=== PATIENT | female | born 1985 | race Caucasian/White ===

== ENCOUNTER 2017-01-29 18:33 | Inpatient (IN) | payer OTHER ==
--- NOTE | ~2017-01-29 | PN ---
Unit #: [id number] #: [id number] Patient: SARAH LEACH [id number] [facility] [address] [place] [address] [id number] MR#: [id number] NAME: SARAH LEACH. ROOM: P106 Age: 31 Sex: F Admission Date: 01/29/2017 : 1985 Attending Physician: Chico Lu M.D. Admitting Physician: Chioc Lu M.D. Primary Care Physician: Primary Care Physician Alisa BRAR PROGRESS NOTES DATE 02/01/2017 DISCUSSION Sarah is showing improvement today with less internal preoccupation, improved psychosis and compliance with medication. She is alert and fully oriented. Her memory and concentration are fair and her thought processes are nonpsychotic today. ASSESSMENT Substance induced psychotic disorder, post-traumatic stress disorder. PLAN Continue current treatment plan anticipating discharge later this week. Dictated by... Chico Lu M.D. [facility]/daya TD: 02/07/2017 10:29 JOB #: [id number] MAYKEL PROGRESS NOTES Page 1 of 1 X Chico Lu MD X PROGRESS NOTE
--- NOTE | ~2017-01-29 | DS ---
Unit #: [id number] #: [id number] Patient: REBEL LEACH [id number] [facility] [address] [place] [address] [id number] MR#: [id number] NAME: REBEL LEACH. ROOM: [facility] Age: 31 Sex: F Admission Date: 01/29/2017 : 1985 Discharge Date: 02/02/2017 Attending Physician: Chico Lu M.D. Primary Care Physician: Primary Care Physician No DISCHARGE SUMMARY REASON FOR ADMISSION Elia is a 31-year-old woman with a long history of polysubstance dependence and mood disorder. She was admitted when she was unable to contract for safety and had presented to [facility] in restraints due to agitation and disorientation following methamphetamine abuse. She was transferred to [facility]. HOSPITAL COURSE The patient was admitted and placed on suicide and psychosis precautions. Zyprexa was added for antipsychotic effects and her previous psych medications were restarted. The patient's drug-induced psychosis rapidly resolved with less internal preoccupation. No disorganization and no further suicidal ideation or agitation. On the date of discharge, she was once again able to contract for safety in the outpatient setting. DISCHARGE DIAGNOSES AXIS I: Amphetamine-induced psychotic disorder; posttraumatic stress disorder by history. AXIS II: Borderline personality traits. AXIS III: Amphetamine intoxication, resolved. AXIS IV: AXIS V: DISCHARGE INSTRUCTIONS Follow up with community mental health and CD-IOP at this facility. DISCHARGE MEDICATIONS Buspirone 15 mg q.i.d. for anxiety, Minipress 2 mg at bedtime for nightmares, Zoloft 100 mg daily for depression, albuterol 2 puffs every 4 hours as needed for shortness of air, Zyprexa was not continued after discharge. CONDITION AT DISCHARGE Fair. PROGNOSIS Fair. DIET AND ACTIVITY Ad mihaela. Unit #: [id number] #: [id number] Patient: REBEL LEACH Dictated by... Chico Lu M.D. MR/modl TD: 03/28/2017 22:26 JOB #: [id number] DISCHARGE SUMMARY Page 1 of 1 X Chico Lu MD DISCHARGE SUMMARY
--- NOTE | ~2017-01-29 | HP ---
Unit #: [id number] #: [id number] Patient: REBEL LEACH [id number] [place] [address] [id number] I MR#: [id number] NAME: REBEL LEACH. ROOM: [facility] Age: 31 Sex: F Admission Date: 01/29/2017 : 1985 Attending Physician: Chico Lu M.D. Admitting Physician: Chico Lu M.D. Primary Care Physician: Primary Care Physician No HISTORY AND PHYSICAL HISTORY OF PRESENT ILLNESS Rebel is a 31-year-old female admitted to [address] [place] [address] on 01/29/2017 for suicidal ideation and psychosis. PAST MEDICAL HISTORY 1. PCOS 2. COPD 3. Anorexia PAST SURGICAL HISTORY 1. section times one 2. Bilateral tubal ligation 3. Colon resection SOCIAL HISTORY No tobacco or alcohol use. Does report methamphetamine use. She is currently single and homeless. FAMILY HISTORY Noncontributory. REVIEW OF SYSTEMS CONSTITUTIONAL: No fever or chills. HEENT: Denies any sore throat, ear pain or runny nose. CARDIOVASCULAR: Denies chest pain, irregular heart rhythm or palpitations. CHEST: Denies shortness of breath or cough. No hemoptysis. GASTROINTESTINAL: Denies nausea, vomiting, diarrhea or chronic constipation. ENDOCRINE: Denies history of increased thirst or urination. No recent significant weight loss or gain. GENITOURINARY: Denies dysuria, frequency, or hematuria. SKIN: Denies any rashes. HEMATOLOGIC: Denies history of increased bleeding or bruising. MUSCULOSKELETAL: Denies any hot, swollen joints. No generalized muscle pain. NEUROLOGIC: Denies problems with vision or speech. No frequent, severe headaches. No numbness, tingling or weakness in any extremities. Denies loss of bladder or bowel control. CURRENT MEDICATIONS 1. Proventil Unit #: [id number] #: [id number] Patient: REBEL LEACH 2. BuSpar 3. Thorazine 4. Minipress 5. Zoloft ALLERGIES Klonopin and benzodiazepines. PHYSICAL EXAMINATION GENERAL: Alert, oriented, in no acute distress. VITAL SIGNS: Blood pressure 124/63, heart rate 77, respirations 18. HEIGHT: 5 foot 7 inches. WEIGHT: 150 pounds. SKIN: Warm and dry without rash or lesion. HEENT: Normocephalic. TMs not viewed. Oral and nasal passages clear. Conjunctivae clear. PERRLA. EOMs intact. NECK: Supple without lymphadenopathy or thyromegaly. HEART: Regular rate and rhythm without murmur. LUNGS: Clear. ABDOMEN: Soft, nontender, without masses or hepatosplenomegaly. : Not done. EXTREMITIES: No evidence of cyanosis, clubbing or edema. Moves all without focal deficit. NEUROLOGICAL: Grossly within normal limits. Cranial Nerves: II: Visual [place] are intact. III, IV AND : Extraocular movements are intact. Pupils are equal, round and reactive to light. V: Facial sensation is grossly normal. VII: Facial movements and expression are normal. VIII: Auditory acuity grossly intact. IX, X: Uvula is midline. Phonation is normal. XI: Patient shrugs shoulders and turns head normally. XII: Tongue protrudes in the midline. Sensory and Motor Function: Sensory and motor sensation is grossly normal. Motor: moves all extremities well. Coordination: Gait is normal. Deep Tendon Reflexes: Intact. IMPRESSION 1. Psychiatric admission. 2. PCOS. 3. COPD. 4. History of anorexia. RECOMMENDATIONS Psychiatric, per psychiatrist. MEDICAL: I see no contraindications to participating in facility's activities. MEDICAL PROGNOSIS Good. MEDICAL CONDITION Stable. Dictated by... Unit #: [id number] #: [id number] Patient: REBEL LEACH A.P.R.N. MJW/rll TD: 01/30/2017 19:05 JOB #: [id number] HISTORY AND PHYSICAL Page 1 of 1 X TISHA BURNETTE APRN HISTORY AND PHYSICAL
--- NOTE | ~2017-01-29 | PN ---
Unit #: [id number] #: [id number] Patient: REBEL LEACH [id number] [facility] [address] [place] [address] [id number] I MR#: [id number] NAME: REBEL LEACH. ROOM: [facility] Age: 31 Sex: F Admission Date: 01/29/2017 : 1985 Attending Physician: Chico Lu M.D. Admitting Physician: Chico Lu M.D. Primary Care Physician: Primary Care Physician Alisa ZIEGLER NOTES DATE 01/31/2017 DISCUSSION Elia is quietly lying in bed this morning. She reports decreased auditory hallucinations and her affect appears a little bit brighter and more alert today. She is alert and oriented to person, location time and partially situation. Her memory and concentration are fair. Her thought processes are less psychotic. ASSESSMENT Substance induced psychotic disorder, post-traumatic stress disorder. PLAN Continue current treatment plan. Dictated by... Chico Lu M.D. [facility]/daya TD: 02/07/2017 10:14 JOB #: [id number] MAYKEL PROGRESS NOTES Page 1 of 1 X Chico Lu MD PROGRESS NOTE
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
== END 2017-02-02 14:25 | disposition home or self-care (01) | DRG 897 ==
LOC: P1S 18:33
DX: F15.159 Other stimulant abuse with stimulant-induced psychotic disorder, unspecified (principal); R45.851 Suicidal ideations; J44.9 Chronic obstructive pulmonary disease, unspecified; F43.10 Post-traumatic stress disorder, unspecified